=== PATIENT | male | born 1980 | race Caucasian/White ===

== ENCOUNTER 2018-11-13 13:20 | Emergency (ER) | payer MEDICAID ==
[~2018-11-13] VITALS: Ht 177.8 cm; Wt 108.1 kg
[2018-11-13 13:22] VITALS: BP 109/85
[2018-11-13] MEDS ORDERED: IBUPROFEN 800 MG TABLET ONE (13:45)
--- NOTE | 2018-11-13 13:52 | NUR ---
MEDICATED FOR PAIN PER MAR. TAKEN TO RAD
[2018-11-13] MEDS ORDERED: IBUPROFEN 800 MG TABLET PO ONE (14:00)
== END 2018-11-13 14:39 | disposition home or self-care (01) ==
LOC: ED 14:24
DX: M75.32 Calcific tendinitis of left shoulder (principal); M06.4 Inflammatory polyarthropathy; Z87.891 Personal history of nicotine dependence
CPT/HCPCS: 93005; 99283

== ENCOUNTER 2020-02-27 10:18 | Emergency (ER) | payer MEDICAID, OTHER ==
[~2020-02-27] VITALS: Ht 177.8 cm; Wt 113.7 kg
[2020-02-27 10:19] VITALS: BP 155/93
[2020-02-27] MEDS ORDERED: DIAZEPAM 5 MG TABLET PO ONE (11:00)
[2020-02-27] MEDS ORDERED: KETOROLAC 30 MG/1 ML IM ONE (11:00)
[2020-02-27] MEDS ORDERED: KETOROLAC 30 MG/1 ML ONE (11:11)
[2020-02-27] MEDS ORDERED: DIAZEPAM 5 MG TABLET ONE (11:11)
--- NOTE | 2020-02-27 11:17 | NUR ---
PT MEDICATED PER JUL. PT REFUSED VALIUM.
== END 2020-02-27 12:05 | disposition home or self-care (01) ==
LOC: ED 11:41
DX: S29.012A Strain of muscle and tendon of back wall of thorax, initial encounter (principal); E11.9 Type 2 diabetes mellitus without complications; X58.XXXA Exposure to other specified factors, initial encounter; Y93.89 Activity, other specified; Y92.89 Other specified places as the place of occurrence of the external cause; Y99.8 Other external cause status
CPT/HCPCS: 96372; 99283; J1885